=== PATIENT | female | born 1965 ===

== ENCOUNTER 2017-12-07 13:23 | Day surgery (SDC) | payer OTHER ==
--- NOTE | 2017-12-07 05:43 | History and Physical Report ---
DATE: 12/06/2017. CHIEF COMPLAINT AND HISTORY OF CHIEF COMPLAINT: This patient presents with a history of postlaminectomy radiculopathy. She was sent to this facility for a probable pump implant. She is here for an implanted spinal catheter infusion trial with hydromorphone to determine if the implantation would be of any value in her pain control. A surgical re-evaluation has suggested no further surgery. PAST MEDICAL HISTORY: Chronic headaches, sleep apnea, idiopathic thrombocytopenia, degenerative arthritis, fibromyalgia, depression, difficulty sleeping. PAST SURGICAL HISTORY: section, hysterectomy, lumbar laminectomy and fusion, hernia repair. EMPLOYMENT STATUS: Disabled. MEDICATIONS ON ADMISSION: To be provided. She has been weaned off of methadone. ALLERGIES: Morphine. SOCIAL HISTORY: Smoking, caffeine. FAMILY HISTORY: Asthma, diabetes, coronary artery disease, hypertension, cancer. PHYSICAL EXAMINATION: General: Height and weight are unavailable. Vital Signs: Unavailable. Musculoskeletal: Current examination of the musculoskeletal system shows diffuse tenderness in the cervical spine. Range of motion does produce pain throughout the neck, shoulder, and arms. However the primary pain is in the low back with a bilateral lower extremity extension. Her lower extremity functionality shows sensory field abnormalities across multiple dermatomes and the front and back surfaces of both legs. Motor functionality seems to be somewhat comprised of bilateral leg weakness. Ambulation: Antalgic. Assistive-device dependent. Neurologic: Cranial nerves are intact. IMPRESSION: 1. POSTLUMBAR LAMINECTOMY SYNDROME, ICD-10 CODE M96.1. 2. LUMBAR RADICULOPATHY, ICD-10 CODE M54.16 AND M54.17. PLAN: The patient is here for an implanted spinal catheter infusion trial with hydromorphone to determine if the implantation of a permanent pump device would be of any value in her pain control. Although she has multiple regions of pain , we are focusing on the low back, hip, and legs. She already has motor and sensory field abnormalities in the lower extremities. We have discussed the potential risks, side effects, and complications. These include spinal cord injury, nerve root injury, spinal headache, and failure of the therapy. She has been off of her methadone as required. The trial will run 14 days. During this period of time we will schedule three increases as necessary. At the end of the trial period, we will either remove the implanted catheter or implant the device. She understands the implanted catheter has as its basic reasoning reducing the number of needle penetrations to reduce the risk and trauma to the spinal cord and improving the chances of avoiding a spinal headache in combination with the epidural blood patch. All of the risks and side effects have been reviewed. Information has been provided and reviewed. The health specialist information with CD Rom has bee provided and reviewed. She was put in contact with a [employer] account retention representative who will also answer their questions. We will consider this procedure an overnight stay and discharge will be evaluated the same day. JOB NUMBER: [id number] cc: Mary Ko M.D. MTDD
[~2017-12-07 13:23] MED LIST: ACETAMINOPHEN 1,000 MG/100 ML BTL IV ONE; CEFAZOLIN 2 Gram 2 GM/50 ML BAG IVPB ONE; FAMOTIDINE 20MG TABLET PO ONE; HYDROMORPHONE PF 2MG/ML AMP 0.008 MG in 0.9 % SODIUM CHLORIDE 10ML VIA 0.996 ML IV ONE; HYDROMORPHONE PF 2MG/ML AMP 4 MG in 0.9 % SODIUM CHLORIDE 500ML 498 ML IV ONE; MECLIZINE 25 MG TABLET PO ONE; METOCLOPRAMIDE 10 MG TABLET PO ONE; VANCOMYCIN HCL 1,000 MG in DEXTROSE 5 % IN WATER 250 ML IVPB ONE
[2017-12-07] MEDS ORDERED: MIDAZOLAM HCL 2MG/2ML VIAL IV ONE (13:24)
[2017-12-07] MEDS ORDERED: DEXAMETHASONE PRESERVATIVE FREE 10MG/ML VIAL IV ONE (13:24)
[2017-12-07] MEDS ORDERED: LIDOCAINE 2% MDV (20MG/ML) 20ML VIAL IV ONE (13:24)
[2017-12-07] MEDS ORDERED: PROPOFOL 10 MG/ML VIAL IV ONE (13:24)
[2017-12-07] MEDS ORDERED: FENTANYL PF 100MCG/2ML VIAL IV ONE (13:24)
[2017-12-07] MEDS ORDERED: CEFAZOLIN 1G VIAL IM ONE (13:24)
[2017-12-07] MEDS ORDERED: LIDOCAINE 1% W/EPI 1:200,000 MPF 30ML SQ ONE (13:24)
[2017-12-07] MEDS ORDERED: BUPIVACAINE 0.5% W/EPI MPF 30 ML VIAL IVP ONE (13:24)
[2017-12-07] MEDS ORDERED: HYDROMORPHONE HCL 2 MG/ML VIAL IV ONE (13:24)
[2017-12-07] MEDS ORDERED: RINGERS SOLUTION,LACTATED 1,000 ML IV PRN (17:33)
[2017-12-07] MEDS ORDERED: ACETAMINOPHEN 325 MG TAB PO PRN ×2 (17:49)
[2017-12-07] MEDS ORDERED: HYDROMORPHONE HCL 2 MG/ML VIAL IM PRN ×2 (17:49)
[2017-12-07] MEDS ORDERED: OXYCODONE/APAP 10MG-325MG TABLET PO PRN (17:49)
[2017-12-07] MEDS ORDERED: METOCLOPRAMIDE 10 MG TABLET PO PRN (17:49)
[2017-12-07] MEDS ORDERED: SENNOSIDES/DOCUSATE SODIUM UD CAPSULE PO PRN ×2 (17:49)
[2017-12-07] MEDS ORDERED: TEMAZEPAM 15 MG CAPSULE PO PRN ×2 (17:49)
[2017-12-07] MEDS ORDERED: HYDROCODONE/APAP 7.5/325MG TABLET PO PRN ×2 (17:49)
[2017-12-07] MEDS ORDERED: AL HYDROX/MAG HYDROX 30ML UD PO PRN (17:49)
[2017-12-07] MEDS ORDERED: NALOXONE 0.4 MG/1 ML VIAL IVP PRN (17:49)
[2017-12-07] MEDS ORDERED: DIPHENHYDRAMINE HCL IV 50 MG/ML VIAL IVP PRN ×2 (17:49)
[2017-12-07] MEDS ORDERED: METOCLOPRAMIDE HCL 10 MG/2 ML VIAL IVP PRN (17:49)
[2017-12-07] MEDS ORDERED: DIPHENHYDRAMINE HCL 25 MG CAPSULE PO PRN ×2 (17:49)
[2017-12-07] MEDS: OXYCODONE/APAP 10MG-325MG TABLET PO PRN (19:00)
[2017-12-07] MEDS ORDERED: GABAPENTIN 300 MG CAPSULE PO SCH (22:00)
[2017-12-08] MEDS: OXYCODONE/APAP 10MG-325MG TABLET PO PRN ×3 (00:20→08:39)
[2017-12-08] MEDS ORDERED: VANCOMYCIN HCL 1,000 MG in 0.9 % SODIUM CHLORIDE 250ML 250 ML IVPB ONE (02:30)
--- NOTE | 2017-12-08 15:56 | Operative Note - Ferro ---
DATE OF SURGERY: 12/07/17 PREOPERATIVE DIAGNOSES: 1. POST LUMBAR LAMINECTOMY RADICULOPATHY, ICD-10 CODE = M96.1. 2. LUMBAR RADICULOPATHY, ICD-10 CODE = M54.16 AND M54.17. OPERATION: 1. FLUOROSCOPICALLY-GUIDED ACCESS SPINAL SPACE AT L2/3, PLACEMENT OF THIN- WALLED SPINAL CATHETER ADVANCED T10/11. 2. DIAGNOSTIC MYELOGRAPHY WITH RADIOLOGIC SUPERVISION AND INTERPRETATION. 3. BOLUS HYDROMORPHONE 0.004 MG INTO SPINAL SPACE. 4. INCISION, SUBCUTANEOUS DISSECTION, AND ANCHORING OF SPINAL CATHETER TO SUPRASPINOUS FASCIA USING AN ANCHOR DEVICE AND NONABSORBABLE SUTURE. 5. INCISION, SUBCUTANEOUS DISSECTION, AND CREATION OF SUBCUTANEOUS POUCH AT LEFT POSTERIOR GLUTEAL MARGIN FOR PLACEMENT EVENTUALLY OF PUMP. 6. TUNNELING SPINAL CATHETER POUCH INTO POSTERIOR GLUTEAL POUCH. INTERFACE SPINAL CATHETER WITH SECOND CATHETER COMPONENT BY WAY OF A CONNECTOR. TUNNELING SECOND CATHETER COMPONENT 6 CM SUPERIOR EXITING THE SKIN. EXTERNAL CATHETER INTERFACED WITH EXTERNAL PUMP SET TO DELIVER HYDROMORPHONE AT 0.08 MG A DAY. 7. CLOSURE OF MIDLINE INCISION VICRYL FOR FASCIA, RUNNING SUBCUTICULAR VICRYL FOR SKIN. DERMABOND CLOSURE. CLOSURE OF LEFT POSTERIOR GLUTEAL POUCH WITH RUNNING NYLON. 8. 20 ML AUTOLOGOUS BLOOD STERILE TECHNIQUE LEFT ANTECUBITAL WITH SIMULTANEOUS 18-GAUGE TUOHY NEEDLE ACCESS EPIDURAL SPACE AT L3/4, WHICH WAS THE ONLY LEVEL ABOVE THE FUSION AND AN EPIDURAL BLOOD PATCH WAS PERFORMED AT THIS LEVEL WITH THIS BLOOD. 9. STERILE DRESSINGS APPLIED SECURING CATHETER AND ALL CONNECTIONS UNDER STERILE DRESSING. PATIENT TRANSPORTED TO RECOVERY ROOM FLAT, PILLOW UNDER HEAD AND KNEES, STABLE. NO SIDE-EFFECTS OF UPPER OR LOWER EXTREMITY MOBILITY OR FUNCTIONALITY. NO SIGNIFICANT PAIN. SURGEON: ZHANG DENNEY D.O. ANESTHESIA: LOCAL SEDATION. ANESTHESIA PROVIDER: DOMONIQUE WHEELER CRNA. INDICATION: This patient presents with a history of a post lumbar laminectomy radiculopathy. Diagnostics show hardware pedicle screw and fusion at 4/5 and 5/ 1. She was referred for pump implant and trial. PROCEDURE: Intravenous line, vital sign monitoring, IV sedation, prepped and draped in sterile technique. Patient position prone. Sterile prep. Sterile technique. The first level above the fusion at L3/4 was marked, the level at 2/ 3 marked, skin infiltrated at each then a 20-gauge spinal needle beveled with a long axis in a paramedian approach, using AP and lateral imaging, was placed into the spinal space. With CSF flow, a thin-walled spinal catheter was advanced and positioned at T10/11 because of the upper higher level of her pain. Diagnostic myelography was performed, the resulting flow characteristics were smooth and linear into the space. With appropriate flow, 0.004 mg of Hydromorphone was then given as a bolus into the spinal space. Catheter was clamped and there was CSF noted. Skin above and below the needle infiltrated, incision made, and subcutaneous dissection was conducted to the supraspinous fascia. The needle was removed and the catheter was anchored to the supraspinous fascia with an anchoring device and nonabsorbable suture. There was still CSF noted from the catheter. The catheter was clamped to stop CSF leak. At the left posterior gluteal margin, site picked by the patient eventually for the pump, skin infiltrated, incision made, and subcutaneous dissection was conducted to form subcutaneously. A tunneling tool was used to carry the spinal catheter into the posterior pouch and then the spinal catheter was interfaced with a second catheter component by way of a connector. The second catheter component was tunneled 6 cm and exited the skin. The external catheter was then interfaced with an external pump, which was set to deliver Hydromorphone at 0.08 mg a day. At that point, an 18-gauge Tuohy needle with [id number] into the epidural space at L3/4 above the fusion. 20 mL of autologous blood drawn sterile technique, left antecubital, then maintaining sterility, this blood placed onto the field and an epidural blood patch was performed at this level with this blood. Needle removed. Sterile dressing was applied securing the catheter and all connections under the sterile dressing. She was then turned supine, flat, and transported to the Recovery Room, pillow under head and knees. She was stable. There were no asymmetric findings. There were no upper or lower extremity complications. She was appropriate. She will be kept flat for four hours and slowly elevated for one. She will be monitored and managed on the Floor overnight and then discharged in the morning. DISCHARGE INSTRUCTIONS: 1. Sites remain clean and dry. No showering or bathing in any way that disrupts dressing. If it happens, contact the clinic. 2. Standard medications resumed including Levaquin, the antibiotic, 500 mg once a day for 14 days. 3. Spinal opioid side-effects; respiratory depression, nausea, vomiting, constipation, urinary retention, lightheadedness, or rash have all been discussed and reviewed. Should any of this happen, she should contact the clinic or go to a local Emergency Room. All other instructions provided, numbers to contact, problems given, at that point, she will be prepared for discharge to home. cc: Dr. Lang Dumont, Neurosurgery at [facility] Dr. Na Daugherty JOB NUMBER: [id number] MTDD
--- NOTE | 2017-12-08 22:35 | RADIOLOGY REPORT ---
EXAM: SPINE, 1 VIEW HISTORY: POST PAIN CATHETER IMPLANT. TECHNIQUE: Single AP view of the spine obtained from the mid thoracic to the mid lumbar level. COMPARISON: None. FINDINGS: No battery pack is included in the field of view. There is probably a faint catheter extending from the left side of the mid abdomen to overlie the mid lumbar spine and probably ascends up to the point of a tiny metallic dot- like density overlying T11, which presumably represents the superior extent of the spinal catheter. Correlation with the procedure itself suggested. Surgical clips left upper quadrant. There are some rounded metallic densities overlying the inferior aspect of the film and a couple other larger metallic densities barely included on the lower edge of the film. These may all be artifacts external to the patient or possibly related to the procedure and clinical correlation is suggested. IMPRESSION: 1. TIP OF THE SPINAL CATHETER IS PROBABLY AT THE T11 LEVEL. 2. SOME SPURRING IN THE SPINE. 3. SURGICAL CLIPS LEFT UPPER QUADRANT. ADDITIONAL SMALL METALLIC DENSITIES OVERLYING THE ABDOMEN MAY BE ARTIFACT OR RELATED TO THE PROCEDURE ITSELF AND CLINICAL CORRELATION IS SUGGESTED. JOB NUMBER: [id number] MTDD
== END 2017-12-08 09:00 | disposition home or self-care (01) ==
LOC: SUR 13:23 → MEDSURG 17:23 → SUR 12-08 09:00
PROVIDERS: ATTEND Pain Medicine Interventional Pain Medicine
DX: M96.1 Postlaminectomy syndrome, not elsewhere classified (principal); M54.16 Radiculopathy, lumbar region; M54.17 Radiculopathy, lumbosacral region; J44.9 Chronic obstructive pulmonary disease, unspecified
CPT/HCPCS: 62350; 01936; 72020; Q9967; J3370 ×2; J1100; J3010; J1170 ×2; J0690; J7040; J7050; J7060

== ENCOUNTER 2017-12-21 13:54 | Day surgery (SDC) | payer OTHER ==
--- NOTE | 2017-12-21 07:35 | History and Physical Report ---
DATE: 12/21/2017. CHIEF COMPLAINT AND HISTORY OF CHIEF COMPLAINT: This patient presents with an ongoing implanted spinal catheter infusion trial with hydromorphone. She is here for permanent implant. She has had multiple spinal surgeries and is postlaminectomy with intractable radiculopathy. PAST MEDICAL HISTORY: Chronic headaches, sleep apnea, idiopathic thrombocytopenia, degenerative arthritis, fibromyalgia, depression, difficulty sleeping. PAST SURGICAL HISTORY: section, hysterectomy, lumbar spinal surgery and fusion, hernia repair. EMPLOYMENT STATUS: Disabled. SOCIAL HISTORY: Smoking and caffeine. FAMILY HISTORY: Asthma, diabetes, coronary artery disease, hypertension, cancer. MEDICATIONS ON ADMISSION: To be provided. ALLERGIES: Morphine and aspirin. PHYSICAL EXAMINATION: General: Height and weight are unknown. Weight: Unknown. Vital Signs: Not available. HEENT: Within normal limits. Lungs: Clear. Heart: Regular rate and rhythm. Abdomen: Nontender. Musculoskeletal: Examination of the musculoskeletal system shows the dressings for the implanted catheter trial to be intact. The external pump is intact and is functioning. The primary pain pattern is postlaminectomy radiculopathy. Lower extremity functionality shows sensory field abnormalities and motor weakness. Neurologic: Cranial nerves are intact. IMPRESSION: 1. POSTLUMBAR LAMINECTOMY SYNDROME, ICD-10 CODE M96.1. 2. LUMBAR RADICULOPATHY, ICD-10 CODE M54.16 AND M54.17. 3. IMPLANTED CATHETER INFUSION TRIAL WITH HYDROMORPHONE. PLAN: The patient is here for implantation of a permanent system after removal of the external components. We will consider the procedure outpatient, although an overnight stay will be evaluated. JOB NUMBER: [id number] cc: Mary Ko M.D. MTDD
[~2017-12-21 13:54] MED LIST changes: -CEFAZOLIN 2 Gram 2 GM/50 ML BAG IVPB ONE; +HYDROMORPHONE HCL 0.04 GM in 0.9 % SODIUM CHLORIDE 10ML VIA 20 ML IV ONE; +HYDROMORPHONE PF 2MG/ML AMP 0.004 MG in 0.9 % SODIUM CHLORIDE 10ML VIA 0.998 ML IV ONE; -HYDROMORPHONE PF 2MG/ML AMP 0.008 MG in 0.9 % SODIUM CHLORIDE 10ML VIA 0.996 ML IV ONE; -HYDROMORPHONE PF 2MG/ML AMP 4 MG in 0.9 % SODIUM CHLORIDE 500ML 498 ML IV ONE
[2017-12-21] MEDS ORDERED: FENTANYL PF 100MCG/2ML VIAL IV ONE (13:55)
[2017-12-21] MEDS ORDERED: CEFAZOLIN 1G VIAL IM ONE (13:55)
[2017-12-21] MEDS ORDERED: PROPOFOL 10 MG/ML VIAL IV ONE (13:55)
[2017-12-21] MEDS ORDERED: MIDAZOLAM HCL 2MG/2ML VIAL IV ONE (13:55)
[2017-12-21] MEDS ORDERED: LIDOCAINE 2% MDV (20MG/ML) 20ML VIAL IV ONE (13:55)
--- NOTE | 2017-12-22 07:54 | Operative Note ---
DATE OF SURGERY: 12/21/2017. PREOPERATIVE DIAGNOSIS: 1. POSTLUMBAR LAMINECTOMY SYNDROME, M96.1. 2. LUMBAR RADICULOPATHY, ICD-10 CODE M54.16 AND M54.17. 3. IMPLANTED SPINAL CATHETER INFUSION TRIAL WITH HYDROMORPHONE. POSTOPERATIVE DIAGNOSIS: 1. POSTLUMBAR LAMINECTOMY SYNDROME, M96.1. 2. LUMBAR RADICULOPATHY, ICD-10 CODE M54.16 AND M54.17. 3. IMPLANTED SPINAL CATHETER INFUSION TRIAL WITH HYDROMORPHONE. OPERATION: 1. FLUOROSCOPICALLY GUIDED INCISION, SUBCUTANEOUS DISSECTION, AND REMOVAL OF DOOR REPAIRER BUS CATHETER. 2. INCISION, SUBCUTANEOUS DISSECTION, AND CREATION OF SUBCUTANEOUS POUCH AT LEFT POSTERIOR GLUTEAL MARGIN. PLACEMENT OF PUMP IDENTIFIED MEDTRONIC 40 ML PROGRAMMABLE. 3. REVISION OF INDWELLING SPINAL CATHETER INTERFACED TO SECOND CATHETER COMPONENT BY WAY OF CONNECTOR. 4. INTERFACE REVISED CATHETER TO THE PUMP PLACED ONTO THE FIELD FILLED WITH HYDROMORPHONE 1.0 MG PER ML. 5. CATHETER INTERFACED TO PUMP PLACED INTO POUCH, SECURING TO POSTERIOR FASCIA WITH NONABSORBABLE SUTURE. 6. PLACEMENT OF CURVED 24-GAUGE MULLEN NEEDLE TO ACCESS PORT. ASPIRATION WITH CLEARING 1.0 ML OF CATHETER CONTENTS, CLEARING THE CATHETER OF OPIOID AND CEREBROSPINAL FLUID MIXTURE. 7. DIAGNOSTIC MYELOGRAPHY WITH RADIOLOGIC SUPERVISION AND INTERPRETATION 8. WITH PUMP INTO POUCH SECURED TO POSTERIOR FASCIA WITH NONABSORBABLE SUTURE AT THREE POINTS WITH PUMP EYELETS. INCISION CLOSED WITH VICRYL FOR THE FASCIA AND RUNNING SUBCUTICULAR VICRYL FOR THE SKIN. DERMABOND CLOSURE. 9. PROGRAMMING OF PUMP TO DELIVER BY CONTINUOUS INFUSION HYDROMORPHONE AT 0.25 MG PER DAY. SURGEON: Cosme Blanco D.O. ANESTHESIA: Local sedation. ANESTHESIA PROVIDER: Nichol Galvez CRNA. INDICATION: This patient presents with a history of an intractable postlaminectomy radiculopathy. Due to the failure of therapy an implanted spinal catheter infusion trial with has been ongoing with 75 to 80 percent pain control. Due to the failure of all therapy and the success of the trial, she presents today for implantation of a permanent system. DESCRIPTION OF PROCEDURE: Intravenous line, vital sign monitoring, and intravenous sedation. Prepped and draped with sterile technique. The patient was positioned on the table prone. All of the external dressings were removed. At the left posterior gluteal margin, a small pouch for the interface between the external and internal catheter was identified, marked, and infiltrated with local. An incision was made and subcutaneous dissection was conducted to form a pouch of suitable size for the pump, Medtronic 40 mL programmable. The connection between the external catheter and internal catheter was clamped. The catheter was cut and the external catheter was removed by pulling away from the incision. The internal catheter was then revised and resected with the second catheter component by way of a connector. A pump was placed onto the field, 40 mL programmable Medtronic filled with hydromorphone at 1.0 mg per mL. The revised catheter was then interfaced to the new pump. Antibiotic irrigation and Bovie for hemostasis. The pump was placed into the pouch and secured to the fascia with nonabsorbable suture at three points with pump eyelets. A curved 24-gauge Mullen needle was inserted into the access port, and 1.0 mL of catheter contents was aspirated, clearing the catheter of opioid and cerebrospinal fluid mixture. Contrast myelography was then performed through the access port. Contrast was seen moving through the internal pump under imaging and was identified as appropriate. Contrast moving through the pump catheter connection was noted with no kinks, bends, or obstructions. The tip of the catheter at T12-L1 was identified. Myelogram flow characteristics were noted confirming functionality of the catheter and pump. The incision was then closed with Vicryl for the fascia and running subcuticular Vicryl for the skin. Dermabond closure approximated the edge of the wound. The pump was then programmed to deliver by continuous infusion hydromorphone at 0.25 mg a day. She was transported to the recovery room stable, showing no side effects from the procedure or the sedation. When awake and alert, she was prepared for discharge. DISCHARGE INSTRUCTIONS: 1. The sites are to remain clean and dry. No showering or bathing in any way that would disrupt dressings. If it happens, contact the clinic. 2. Standard medications to be resumed including Levaquin the antibiotic 500 mg once a day for seven more days. 3. Spinal opioid side effects including respiratory depression, nausea, vomiting, constipation, urinary retention, lightheadedness, and rash have all been discussed and reviewed. If this happens, contact the clinic. 4. The office is to contact the patient in 24 to 48 hours to set up an appointment in the office in seven to ten days to evaluate the sites. Until then, she is to keep her activities low and limit bend, lift, push, and pull. 4. All other instructions were provided and numbers to contact with problems were given. She was then prepared for discharge. JOB NUMBER: [id number] cc: Mary Ko M.D. MTDD
== END 2017-12-21 16:50 | disposition home or self-care (01) ==
LOC: SUR 13:54
PROVIDERS: ATTEND Pain Medicine Interventional Pain Medicine
DX: M96.1 Postlaminectomy syndrome, not elsewhere classified (principal); M54.16 Radiculopathy, lumbar region; M54.17 Radiculopathy, lumbosacral region
CPT/HCPCS: 62350; 62360; 01936; 62367; Q9967; J3370; J3010; J1170; C1755; J0690; J7060

== ENCOUNTER 2018-01-08 17:37 | Emergency (ER) | payer OTHER ==
--- NOTE | 2018-01-08 18:00 | Emergency Department Record ---
History of Present Illness - General Chief Complaint: Fall Injury Stated Complaint: FELL YESTERDAY Time Seen by Provider: 01/08/18 17:53 Source: Patient, RN notes reviewed Mode of Arrival: Ambulatory - History of Present Illness Initial Comments: patient fell yesterday and landed on her lumbar spine area where she had her pain pump placed 2 weeks ago and some some bleeding at the incision per and he put a bulky dressing on it with antiobiotic ointment. No active bleeding now and the incision looks good. Patient has dilaudid in her pump and percocet for breakthrough pain and gabapentin Complaint: Fall Onset/Timin -: Days(s) Fall From: Standing Severity: Moderate Severity scale (1-10): 7 Quality: Aching - Dixon Coma Scale Eye Response: (4) Open spontaneously Motor Response: (6) Obeys commands Verbal Response: (5) Oriented Violette Total: 15 - Related Data Allergies Allergy/AdvReac Type Severity Reaction Status Date / Time aspirin AdvReac pt has ITP Verified 01/08/18 17:51 morphine AdvReac DIFFICULTY Verified 01/08/18 17:51 BREATHING Travel Screening - Travel/Exposure Within Last 30 Days Have you traveled within the last 30 days?: No - Travel/Exposure Within Last Year Have you traveled outside the [place] in the last year?: No - Additonal Travel Details Have you been exposed to anyone with a communicable illness?: No - Travel Symptoms Symptom Screening: None Review of Systems Reviewed: No additional complaints except as noted below Constitutional: Reports: As per HPI. Denies: Chills, Fever, Malaise, Night sweats, Weakness, Weight change Eyes: Reports: As per HPI. Denies: Eye discharge, Eye pain, Photophobia, Vision change ENT: Reports: As per HPI. Denies: Congestion, Dental pain, Ear pain, Epistaxis , Hearing loss, Throat pain Respiratory: Reports: As per HPI. Denies: Cough, Dyspnea, Hemoptysis, Stridor, Wheezes Cardiovascular: Reports: As per HPI. Denies: Arrhythmia, Chest pain, Dyspnea on exertion, Edema, Murmurs, Orthopnea, Palpitations, Paroxysmal nocturnal dyspnea, Rheumatic Fever, Syncope Endocrine: Reports: As per HPI. Denies: Fatigue, Heat or cold intolerance, Polydipsia, Polyuria Gastrointestinal: Reports: As per HPI. Denies: Abdominal pain, Constipation, Diarrhea, Hematemesis, Hematochezia, Melena, Nausea, Vomiting Genitourinary: Reports: As per HPI. Denies: Abnormal menses, Discharge, Dyspareunia, Dysuria, Frequency, Hematuria, Incontinence, Retention, Urgency Musculoskeletal: Reports: As per HPI, Back pain. Denies: Arthralgia, Gout, Joint swelling, Myalgia, Neck pain Skin: Reports: As per HPI. Denies: Bruising, Change in color, Change in hair/ nails, Lesions, Pruritus, Rash Neurological: Reports: As per HPI. Denies: Abnormal gait, Confusion, Headache, Numbness, Paresthesias, Seizure, Tingling, Tremors, Vertigo, Weakness Psychiatric: Reports: As per HPI. Denies: Anxiety, Auditory hallucinations, Depression, Homicidal thoughts, Suicidal thoughts, Visual hallucinations Hematological/Lymphatic: Reports: As per HPI. Denies: Anemia, Blood Clots, Easy bleeding, Easy bruising, Swollen glands Past Medical History - SOCIAL HISTORY Smoking Status: Current every day smoker Alcohol Use: None Drug Use: None - RESPIRATORY Hx Respiratory Disorders: Yes Hx Asthma: Yes (dx'd yrs ago but recently told she doesnt have asthma uses albuterol rarely) Hx Sleep Apnea: Yes Hx of CPAP: No - CARDIOVASCULAR Hx Cardio Disorders: No Hx Edema: Yes (occassionally) Comment:: pt able to do some walking since trial - NEURO Hx Neuro Disorders: Yes Hx Neuropathy: Yes (feet) - GI Hx GI Disorders: No Hx Wt Loss/Wt Gain: (over 100 lb wt loss with gastric bypass 2002 has leveled off at present wt) - Hx Genitourinary Disorders: No Comment:: s/p hyst - ENDOCRINE Hx Endocrine Disorders: No - MUSCULOSKELETAL Hx Musculoskeletal Disorders: Yes Hx Arthritis: Yes (DDD severe) Hx Fibromyalgia: Yes Comment:: 3 back sx's - PSYCH Hx Psych Problems: Yes Hx Anxiety: Yes (occassionally) Hx Depression: Yes (situational) - HEMATOLOGY/ONCOLOGY Hx Hematology/Oncology Disorders: Yes Hx Blood Transfusions: Yes (platelett infusion x's 1) Comment:: ITP Dx'd 10-12 yrs ago Family Medical History Any Significant Family History?: Yes Hx Anxiety: Mother, Children, Brother/Sister *Anxiety Comment: self also Hx Cancer: Father, Mother *Cancer Comment: lung cancer Hx Heart Disease: Father, Mother Hx Stroke: Brother/Sister Physical Exam - General General Appearance: Alert, Oriented x3, Cooperative, No acute distress - Head Head exam: Normal inspection - Eye Eye exam: Normal appearance, PERRL Pupils: Normal accommodation - ENT ENT exam: Normal exam, Mucous membranes moist, Normal external ear exam, Normal orophraynx, TM's normal bilaterally Ear exam: Normal external inspection. negative: External canal tenderness Nasal Exam: Normal inspection. negative: Discharge, Sinus tenderness Mouth exam: Normal external inspection, Tongue normal Teeth exam: Normal inspection. negative: Dental caries Throat exam: Normal inspection. negative: Tonsillar erythema, Tonsillar exudate - Neck Neck exam: Normal inspection, Full ROM. negative: Tenderness - Respiratory Respiratory exam: Normal lung sounds bilaterally. negative: Respiratory distress - Cardiovascular Cardiovascular Exam: Regular rate, Normal rhythm, Normal heart sounds - GI/Abdominal GI/Abdominal exam: Soft, Normal bowel sounds. negative: Tenderness - Rectal Rectal exam: Deferred - exam: Deferred - Extremities Extremities exam: Normal inspection, Full ROM, Normal capillary refill. negative: Tenderness - Back Back exam: Reports: Normal inspection, Full ROM, Muscle spasm, Tenderness ( patient moving nicely on the cart and sitting appropriately. and set bent over more than 90 degrees ). Denies: Rash noted - Neurological Neurological exam: Alert, Normal gait, Oriented X3, Reflexes normal - Psychiatric Psychiatric exam: Normal affect, Normal mood - Skin Skin exam: Dry, Intact, Normal color, Warm Course Vital Signs 01/08/18 17:42 Temperature 98.1 F Pulse Rate 92 H Respiratory 18 Rate Blood Pressure 113/72 Pulse Ox 97 Medical Decision Making - Data Complexity MDM Data: X-Ray Ordered and/or Reviewed (lots of metal in her back pain pump looks intact, No fractures seen) Disposition Clinical Impression: Lumbar contusion Qualifiers: Encounter type: initial encounter Qualified Code(s): S30.0XXA - Contusion of lower back and pelvis, initial encounter Disposition: Home, Self-Care Condition: (1) Good Instructions: Low Back Strain (ED), Contusion in Adults (ED) Additional Instructions: uses percocet as needed for pain follow up with primary in one week and Dr. Blanco in one week Forms: Patient Portal Access Time of Disposition: 18:21 Quality - Quality Measures Quality Measures: N/A - Blood Pressure Screening Does Patient Have Any of the Following: No Blood Pressure Classification: Normal BP Reading Systolic Measurement: 113 Diastolic Measurement: 72 Screening for High Blood Pressure: < Normal BP, F/U Not Required > [[id number]]
--- NOTE | 2018-01-09 13:17 | RADIOLOGY REPORT ---
EXAM: LUMBAR SPINE, AP AND LATERAL VIEWS HISTORY: BACK PAIN POST FALL. TECHNIQUE: AP and lateral views of the lumbar spine are obtained as well as spot lateral view of the lumbosacral junction. Comparison: Single AP view of the spine dated 12/07/17. FINDINGS: There is diffuse osteopenia. There are five non-rib bearing lumbar type vertebra. There are laminectomy changes at what are likely the L4 and L5 levels. Posterior fusion of L4 through S1 is present with bilateral pedicle screws and vertically oriented interconnecting rods in place. There are interbody spacers at the L4-L5 and L5-S1 levels. There is anterolisthesis of L4 on L5 measuring 3 mm and anterolisthesis of L5 on S1 measuring approximately 4 mm. There are multilevel degenerative changes most pronounced at the lower levels where they are mild to moderate in degree. There are mild degenerative changes of the sacroiliac joints. Post ventral wall hernia repair changes are present and there are post surgical changes at the level of the proximal stomach. An interspinal catheter and medication pump are again noted in place with catheter tip at the T11 level. This is stable. IMPRESSION: 1. POST SURGICAL CHANGES INVOLVING THE LOWER SPINE INCLUDING FUSION OF L4 THROUGH S1. MILD ANTEROLISTHESIS OF L4 ON L5 AND L5 ON S1. NO PRIOR EXAMINATION AVAILABLE FOR COMPARISON TO DETERMINE INTERVAL CHANGE OF HARDWARE. 2. NO SUSPICIOUS ACUTE FRACTURE NOR SUBLUXATION. 3. MULTILEVEL DEGENERATIVE CHANGES. JOB NUMBER: [id number] [facility]
== END 2018-01-08 18:46 | disposition home or self-care (01) ==
LOC: ER 17:37
DX: S30.0XXA Contusion of lower back and pelvis, initial encounter (principal); F17.210 Nicotine dependence, cigarettes, uncomplicated; W01.10XA Fall on same level from slipping, tripping and stumbling with subsequent striking against unspecified object, initial encounter; Y92.002 Bathroom of unspecified non-institutional (private) residence as the place of occurrence of the external cause; Z98.890 Other specified postprocedural states
CPT/HCPCS: 72100; 99283